=== PATIENT | female | born 1990 | race Caucasian/White ===

== ENCOUNTER → 2017-11-23 11:28 | Outpatient (CLI) | payer OTHER, SELFPAY ==
[2017-12-01 08:11] LABS: Dilute Prothrombin Time (dPT) 43.7 sec (0.0-55.0); Dilute Russell Viper Venom 38.3 sec (0.0-47.0); PTT-LA 37.4 sec (0.0-51.9); Thrombin Time 21.1 sec (0.0-23.0); dPT Confirm Ratio 0.99 Ratio (0.00-1.40)
[2017-12-01 17:20] LABS: Anti-Cardiolipin Ab, IgG, Qn < 9 GPL U/mL (0-14); Anti-Cardiolipin Ab, IgM, Qn 13 MPL U/mL (0-12); Interpretation Comment: (.)
== END ==
PROVIDERS: Visit Provider Obstetrics & Gynecology
DX: Z82.3 Family history of stroke (principal)
CPT/HCPCS: 36415; 81291; 86147

== ENCOUNTER → 2018-12-21 13:52 | Outpatient (CLI) | payer BC, SELFPAY ==
[2018-12-21 18:15] LABS: Chlamydia Trachomatis by PCR Negative (Negative); Neisserai gonorrhoeae by PCR Negative (Negative); Probe Check PASS; Sample Adequacy Control PASS; Specimen Processing Control PASS
[2018-12-24 08:22] LABS: HPV Reflexed? NOT INDICATED
== END ==
PROVIDERS: Visit Provider Obstetrics & Gynecology
DX: Z12.4 Encounter for screening for malignant neoplasm of cervix (principal); Z11.3 Encounter for screening for infections with a predominantly sexual mode of transmission
CPT/HCPCS: 87491; 87591; 88175; G0145

== ENCOUNTER → 2019-01-14 14:48 | Outpatient (CLI) | payer BC, SELFPAY ==
[2019-01-14 15:43] LABS: Color, Urine Yellow (Yellow); Glucose, Dipstick Normal (Normal); Ketone-Dipstick Negative (Negative); Leukocyte Esterase-Dipstick 25 /ul (Negative); Nitrite-Dipstick Negative (Negative); Occult Blood-Urine 10 /ul (Negative); Protein-Dipstick Negative (Negative); Specific Gravity, Urine 1.015 (1.002-1.030); Urine Bilirubin Dipstick Negative (Negative); Urine Clarity Cloudy (Clear); Urine Urobilinogen Normal (Normal)
[2019-01-14 16:10] LABS: Absolute Lymphocyte Count 1.34 X10^3/ul (0.83-4.51); Absolute Neutrophil Count 6.5 X10^3/uL (2.0-7.7); Basophil# 0.02 X10^3/uL; Basophil% 0.2 % (0-1); Eosinophil# 0.07 X10^3/uL; Eosinophils% 0.8 % (0-5); Hematocrit 38.4 % (37-47); Hemoglobin 12.8 g/dl (12.0-15.0); Lymphocyte # 1.34 X10^3/ul (4.0); Lymphocyte % 15.7 % (19-41); Mean Corp Hgb Conc 33.3 g/gl (32-36); Mean Corpuscular Volume 89.9 fL (81-99); Mean Platelet Vol. 10.5 fl (6.2-12.0); Monocyte# 0.59 X10^3/uL; Monocyte% 6.9 % (0-10); Neutrophil # 6.48 X10^3/uL (2.7-7.7); Neutrophil % 76.2 % (47-70); POSITIVE COUNT NO; POSITIVE DIFFERENTIAL NO; POSITIVE MORPHOLOGY NO; Platelet Count 285 K/mm3 (150-450); RBC Distribution Width CV 12.6 % (11.6-14.6); RBC Distribution Width SD 40.9 fl (35.1-43.9); Red Blood Count 4.27 M/mm3 (4.2-5.4); White Blood Count 8.5 K/mm3 (4.4-11.0)
[2019-01-14 16:51] LABS: Thyroid Stim Hormone (TSH) 1.04 uIU/mL (0.358-3.74)
[2019-01-14 17:32] LABS: HIV - WCH Non-Reactive (Nonreactive); Rubella IgG 26.9 IU/mL
[2019-01-17 11:08] LABS: HEPATITIS B SURFACE AG Negative (Negative); Hep C Antibodies <0.1 s/co ratio (0.0-0.9)
[2019-01-21 01:29] LABS: Prenatal RPR NONREACTIVE (NONREACTIVE)
== END ==
PROVIDERS: Visit Provider Obstetrics & Gynecology
DX: Z34.81 Encounter for supervision of other normal pregnancy, first trimester (principal)
CPT/HCPCS: 36415; 81002; 84443; 85025; 86703; 86762; 86803; 87340

== ENCOUNTER → 2019-05-25 11:52 | Outpatient (CLI) | payer BC, SELFPAY ==
[2017-10-11 04:05] VITALS: BMI 30.9
[2019-05-25 12:23] LABS: Hematocrit 34.3 % (37-47); Hemoglobin 11.4 g/dL (12.0-15.0); Mean Corp Hgb Conc 33.2 g/dL (32-36); Mean Corpuscular Hgb 30.5 pg (27.0-32.0); Mean Corpuscular Volume 91.7 fL (81-99); Mean Platelet Vol. 10.6 fl (6.2-12.0); Platelet Count 195 K/mm3 (150-450); RBC Distribution Width CV 13.5 % (11.6-14.6); RBC Distribution Width SD 45.7 fl (35.1-43.9); Red Blood Count 3.74 M/mm3 (4.2-5.4); White Blood Count 10.4 K/mm3 (4.4-11.0)
[2019-05-25 12:25] LABS: Glucose Challenge Gest 1H 50g 125 mg/dL (70-140)
== END ==
PROVIDERS: Visit Provider Obstetrics & Gynecology
DX: Z34.83 Encounter for supervision of other normal pregnancy, third trimester (principal)
CPT/HCPCS: 82950; 85027

== ENCOUNTER → 2019-07-19 14:06 | Outpatient (CLI) | payer BC, SELFPAY ==
[2017-10-11 04:05] VITALS: BMI 30.9
== END ==
PROVIDERS: Visit Provider Obstetrics & Gynecology
DX: Z36.85 Encounter for antenatal screening for Streptococcus B (principal)
CPT/HCPCS: 87077; 87081; 87186

== ENCOUNTER → 2019-08-09 11:50 | Outpatient (CLI) | payer BC, SELFPAY ==
[2019-08-09 11:55] LABS: ROM Internal Control Test YES-OK TO RESULT pt. (Internal QC)
[2019-08-09 11:56] LABS: Record Kit Lot#, ROM+ J8255
[2019-08-09 12:13] LABS: ROM Patient Test POSITIVE (Negative)
== END ==
PROVIDERS: Visit Provider Obstetrics & Gynecology
DX: Z34.83 Encounter for supervision of other normal pregnancy, third trimester (principal)
CPT/HCPCS: 84112

== ENCOUNTER 2019-08-09 13:50 | Inpatient (IN) | payer BC, SELFPAY ==
[2017-10-11 04:05] VITALS: BMI 30.9
--- NOTE | 2019-08-09 14:19 | PCM.HPOB.BLA ---
History and Physical Date of Admission: 08/09/19 OB HISTORY AND PHYSICAL EXAMINATION History of this : 29 yo female Ab0 with EDC 08/11/2019 by Ultrasound, presents to Labor and Delivery with positive ROM test in office today. BONILLA 13.8 cm and all other testing for ROM was negative. 38 5/7 wk EGA. . care remarkable for 1.) +GBS 2.) MSAFP and CF testing declined 3.) Cannot swallow pills 4.) Daughter had a possible stroke after , some motor delays, possible speech delays 5.) Epidural planned 6.) planned 7.) Lives about an hour from [place], 8.) Complex Regional Pain Syndrome -- reflex sympathetic dystrophy Pertinent Past Medical History: None. Allergies: No Known Drug Allergies Medications: During - Carafate 100 mg/mL oral suspension; Prilosec OTC 20 mg tablet,delayed release; 28 mg iron-800 mcg tablet; Zovirax 5 % topical ointment; Nexium 20 mg capsule,delayed release Review of Systems: Non-contributory 08/09/2019 Page Number 1 PHYSICAL EXAMINATION General Appearance: 29 yo female in no acute distress Vital Signs: AF, VSS Heart: RRR without rubs or gallops Lungs: CTA x 2 Breasts: deferred Abdomen: gravid Pelvis: Cervix: Presentation: cephalic Station: Fetus: Size: Sono today: Amniotic fluid: Normal and 13.8 cm EFW 44.9 pct EFW 7lb 12oz lbs Movement: present Heart: 130-140s with accels. UCs q 4 mins (minimal time on monitor) Impression /Plan: Intrauterine 39 5/7 wk Positive ROM. negative pool, neg nitz, and neg fern. BONILLA on sono 13.8 cm. Prior delivery with prolonged ROM. Infection and then vacuum delivery. Nervous re delivery. Recommended pitocin induction after admission.
[2019-08-09 14:21] VITALS: BMI 30.9
[2019-08-09] MEDS: Lactated Ringers 1,000 ML 50 ML IV (15:00)
[2019-08-09 15:29] LABS: Absolute Lymphocyte Count 1.49 X10^3/uL (0.83-4.51); Absolute Neutrophil Count 9.3 X10^3/uL (2.0-7.7); Basophil# 0.02 X10^3/uL; Basophil% 0.2 % (0-1); Eosinophil# 0.02 X10^3/uL; Eosinophils% 0.2 % (0-5); Hematocrit 34.1 % (37-47); Hemoglobin 11.3 g/dL (12.0-15.0); Lymphocyte # 1.49 X10^3/ul (4.0); Lymphocyte % 12.8 % (19-41); Mean Corp Hgb Conc 33.1 g/dL (32-36); Mean Corpuscular Volume 87.7 fL (81-99); Mean Platelet Vol. 11.8 fl (6.2-12.0); Monocyte# 0.67 X10^3/uL; Monocyte% 5.8 % (0-10); NRBC Flagged by Analyzer 0 % (0-5); Neutrophil # 9.32 X10^3/uL (2.7-7.7); Neutrophil % 80.1 % (47-70); Platelet Count 184 K/mm3 (150-450); RBC Distribution Width CV 13.1 % (11.6-14.6); RBC Distribution Width SD 41.2 fl (35.1-43.9); Red Blood Count 3.89 M/mm3 (4.2-5.4); White Blood Count 11.6 K/mm3 (4.4-11.0)
[2019-08-09] MEDS: Oxytocin 30 units/NS 500 ml 30 UNITS/500 ML IV.SOLN IV (17:10)
[2019-08-09] MEDS: Lactated Ringers 500 ML 999 ML IV ×2 (17:18→19:50)
[2019-08-09] MEDS: fentaNYL-bupivacaine (epidural) 100 ML BAG EPIDURAL ×2 (18:20→23:00)
--- NOTE | 2019-08-09 19:53 | PN.OBGYN_ITS ---
Subjective: MD PATIENT CNM ASSISTING Comfortable with epidural Objective: AVSS FHTs: 135 baseline, moderate variability, with accels, no decels UCs:Q 4-5, tracing inconsistent Cervix:2/50/-3 Pitocin:4 mu - Physical Exam General: Alert, Oriented x3, No apparent distress HEENT: PERRLA, EOMI Oral: Moist Mucosa Neck: Supple Neurological: Cranial nerves II-XII grossly intact Psych/Mental Status: Normal Affect, Appropriate, Alert and oriented to time, place, person, mood and affect Weight: 175 lb Body Mass Index (BMI) 30.9 Intake and Output for Last 24 Hours 08/07/19 08/08/19 08/09/19 23:59 23:59 23:59 Intake Total 756.07 / 756.07 Balance 756.07 / 756.07 Laboratory Tests Past 24 Hrs 08/09/19 08/09/19 15:00 15:00 WBC 11.6 H RBC 3.89 L Hgb 11.3 L Hct 34.1 L MCV 87.7 MCH 29.0 MCHC 33.1 RDW Std Deviation 41.2 RDW Coeff of Jamir 13.1 Plt Count 184 MPV 11.8 Immature Gran % (Auto) 0.900 Neut % (Auto) 80.1 H Lymph % (Auto) 12.8 L Pierce % (Auto) 5.8 Eos % (Auto) 0.2 Baso % (Auto) 0.2 Absolute Neuts (auto) 9.3 H Absolute Lymphs (auto) 1.49 Nucleated RBC % 0 Blood Type O POSITIVE Antibody Screen NEGATIVE Medical Necessity - Tobacco Use Smoking Status: Never smoker Assessment/Plan All Active Problems 40 weeks gestation of (Acute) Vacuum extractor delivery, delivered (Acute) Assessment: 29 yo female Ab0 with EDC 08/11/2019 by Ultrasound,with po sitive ROM test in office today. . 38 5/7 wk EGA. Complex Regional Pain Syndrome -- reflex sympathetic dystrophy GBS positive Inconsistent UC pattern d/t difficulty tracing with pt position changes Plan: IUPC placed Continue POC as directed by Dr. Pozo
[2019-08-09] MEDS: Ondansetron 4 MG/2 ML Vial IV (20:14)
[2019-08-09] MEDS: Mag Hydrox/Al Hydrox/Simeth 30 ML UDC PO (20:39)
[2019-08-09] MEDS: Lactated Ringers 1,000 ML 200 ML IV (23:23)
[2019-08-09] MEDS: Oxytocin 30 units/NS 500 ml 30 UNITS/500 ML IV.SOLN 334 UNITS IV (23:58)
--- NOTE | 2019-08-10 00:03 | PCM.OPRPT ---
Vaginal Delivery Maternal Presentation: Medically Indicated Induction 39 5/7 wk EGA presents with +ROM Amniotic Membrane Rupture Type: Spontaneous at home Rupture of Membrane time: uncertain Amniotic Fluid Description: Clear Final FABIOLA: 08/11/19 Final FABIOLA Source: US <20 weeks Gestational age: 39 Weeks and 6 Days Date of Procedure: 08/09/19 Pre-Operative Diagnosis: 38 5/7 wk EGA SROM Post-Operative Diagnosis: Same Surgery/ Procedure Performed: Spontaneous Vaginal Delivery Type of Anesthesia: Epidural Description of Procedure: of a sadler viable male over intact perineum. Head delivered MARIANNA. Loose body cord / shoulder cord times one reduced with delivery of shoulders. Shoulders delivered easily. OP and nares bulb suctioned and to maternal abdomen with spont vigorous cry. Routine cord blood for typing collected PP exam; 1st deg vaginal laceration reapproximated well and hemostatic, No repair required Placenta delivered by spont expulsion, expression 3V cord, normal appearing and intact with trailing membranes. EBL 200 cc Pt and infant tolerated delivery well To recovery, stable condition. Raytec and needle counts correct times two. Presentation: Vertex, MARIANNA Placental Delivery Description: Spontaneous, Expressed Placenta Disposition: [facility] Cord Vessel Description: 3 Vessels Nuchal Cord Compression: Without compression Cord Entanglement: - - cord around shoulders, body times one Drain: Grigsby to straight drain Estimated Blood Loss: 200 Infant A gender: Male (1 minute): 8 (5 minute): 9 Episiotomy Description: None Laceration: Vaginal Extension/lac - hemostatic and no repair required., 1st degree Medications given after delivery: IV Pitocin Complications: None
--- NOTE | 2019-08-10 00:09 | DCINST_ITS ---
Discharge Diet: No Restrictions Discharge Activity: May Shower, May Take a Tub Bath Return to work on:: 09/26/19 May resume sexual activity in: 4-6 weeks Additional Activity Instructions:: Nothing in the vagina for 4-6 weeks. You may return to work/school in 6 weeks. Additional Instructions: If you experience any of the following, contact your healthcare provider. * Bleeding that soaks a pad every hour for 2 hours * Fever 100.4 or higher * Unrelieved abdominal pain * Problems urinating (including inability to urinate or burning while urinating). * Visual changes * Severe headache * Flu-like symptoms * Pain or redness in one of both of your breasts * Pain, warmth, tenderness or swelling in your legs, especially the calf area * Frequent nausea and vomiting * Symptoms of depression or anxiety If you experience any of the following, call 911 or go to the nearest Emergency Room. * Chest pain * Problems breathing * Seizure activity * Partial or complete paralysis of a body part, slurred speech, weakness or drooping of the face, or a sudden inability to walk or hold your balance Allergies/Adverse Reactions: Allergies No Known Allergies Allergy (Verified 08/09/19 15:38) Medications to take at Discharge Esomeprazole Mag Trihydrate [Nexium] 20 mg PO DAILY PRN 10/10/17 Vits [Prenatabs FA] 1 tablet PO DAILY 10/10/17 Docusate Sodium [Colace] 100 mg PO BID PRN PRN #60 cap 10/11/17 Ibuprofen 800 mg PO TID PRN #30 tab 10/11/17 Please Follow Up With: Kimi Pozo MD - [phone] When: Call to make an appointment with your doctor in 6 weeks. Primary Care Physician: Care Physician,No Primary [Primary Care Provider] - Test Results: Test results from this visit will be discussed in further detail at your follow- up appointment, if applicable. Proposed Discharge Date: 08/12/19
[2019-08-10] MEDS: Ibuprofen 600 MG Tablet PO ×4 (02:37→23:55)
[2019-08-10] MEDS: 0.9% Saline Lock 10 ML Syringe IV (02:38)
[2019-08-10 04:15] VITALS: BP 103/57; PULSE 78; RESP 16; TEMP 36.4
[2019-08-10] MEDS: Acetaminophen 500 MG Tablet 1000 MG PO ×2 (07:02→17:34)
--- NOTE | 2019-08-10 07:22 | PN.OBGYN_ITS ---
Subjective: PPD#1 Induction after + ROM 39 5/7 wk Doing well. Some pain at back. Waiting to void, and not able yet after Grigsby removed at 2 am. Objective: Sitting up in bed. S/L in L wrist - Physical Exam General: Alert, Oriented x3, Cooperative, No apparent distress HEENT: Atraumatic, EOMI Neck: Supple Abdomen: Soft - Fundus firm NT inferior to umbilicus Neurological: Cranial nerves II-XII grossly intact Psych/Mental Status: Normal Affect Vital Signs Temp Pulse Resp BP 97.5 F L 78 16 103/57 L 08/10/19 04:15 08/10/19 04:15 08/10/19 04:15 08/10/19 04:15 Weight: 79.379 kg Body Mass Index (BMI) 30.9 Intake and Output for Last 24 Hours 08/08/19 08/09/19 08/10/19 23:59 23:59 23:59 Intake Total 2310.73 / 2310.73 500.00 / 500.00 Output Total 1300 / 1300 Balance 2310.73 / 2310.73 -800.00 / -800.00 Laboratory Tests Past 24 Hrs 08/09/19 08/09/19 15:00 15:00 WBC 11.6 H RBC 3.89 L Hgb 11.3 L Hct 34.1 L MCV 87.7 MCH 29.0 MCHC 33.1 RDW Std Deviation 41.2 RDW Coeff of Jamir 13.1 Plt Count 184 MPV 11.8 Immature Gran % (Auto) 0.900 Neut % (Auto) 80.1 H Lymph % (Auto) 12.8 L [place] % (Auto) 5.8 Eos % (Auto) 0.2 Baso % (Auto) 0.2 Absolute Neuts (auto) 9.3 H Absolute Lymphs (auto) 1.49 Nucleated RBC % 0 Blood Type O POSITIVE Antibody Screen NEGATIVE Medical Necessity - Tobacco Use Smoking Status: Never smoker Assessment/Plan 39 5/7 wk positive ROM Induction Stable . Continue care.
[2019-08-10 08:24] VITALS: BP 107/59; PULSE 72; RESP 16; TEMP 36.5; O2SAT 98
[2019-08-10] MEDS: Senna/Docusate Sodium 1 Tablet PO (08:40)
[2019-08-10 12:54] VITALS: BP 108/73; PULSE 82; RESP 16; TEMP 36.6; O2SAT 96
[2019-08-10 15:51] VITALS: BP 117/69; PULSE 72; RESP 16; TEMP 36.5; O2SAT 96
[2019-08-10 19:53] VITALS: BP 115/70; PULSE 83; RESP 16; TEMP 36.8; O2SAT 95
[2019-08-10 23:45] VITALS: BP 105/62; PULSE 64; RESP 16; TEMP 36.5
[2019-08-11 03:42] VITALS: BP 106/59; PULSE 78; RESP 16; TEMP 36.4
[2019-08-11] MEDS: Acetaminophen 500 MG Tablet 1000 MG PO ×2 (05:22→15:27)
--- NOTE | 2019-08-11 06:48 | PCM.PN.OB ---
Subjective: PPD#2 induction ROM positive test Doing well. Baby just finished about 3 hr of nursing. She is hoping for some sleep soon. Pain control adequate circumcision planned prior to dischg. - Physical Exam General: Alert, Oriented x3, Cooperative, No apparent distress HEENT: Atraumatic, EOMI Neck: Supple Abdomen: Soft - Fundus firm NT at 2 cm inferior to umbilicus Psych/Mental Status: Normal Affect Vital Signs Temp Pulse Resp BP Pulse Ox 97.6 F L 78 16 106/59 L 95 08/11/19 03:42 08/11/19 03:42 08/11/19 03:42 08/11/19 03:42 08/10/19 19:53 Oxygen Delivery Method Room Air Weight: 79.379 kg Body Mass Index (BMI) 30.9 Intake and Output for Last 24 Hours 08/09/19 08/10/19 08/11/19 23:59 23:59 23:59 Intake Total 2310.73 / 2310.73 500.00 / 500.00 500 / 500 Output Total 2635 / 2635 Balance 2310.73 / 2310.73 -2135.00 / -2135.00 500 / 500 Medical Necessity - Tobacco Use Smoking Status: Never smoker Assessment/Plan PPD#2 39 5/7 wk positive ROM Induction Stable . Continue care. Dischg home today. circumcision planned prior to dischg.
[2019-08-11 09:36] VITALS: BP 115/66; PULSE 82; TEMP 36.3
[2019-08-11] MEDS: Senna/Docusate Sodium 1 Tablet PO (10:32)
[2019-08-11] MEDS: Ibuprofen 600 MG Tablet PO (10:32)
[2019-08-11 15:15] VITALS: BP 107/61; PULSE 85; RESP 18; TEMP 36.5
== END 2019-08-11 18:50 | disposition home or self-care (01) | DRG 806 ==
PROVIDERS: Admitting Provider Obstetrics & Gynecology; Visit Provider Obstetrics & Gynecology
DX: O75.9 Complication of labor and delivery, unspecified (principal); O99.354 Diseases of the nervous system complicating childbirth; Z37.0 Single live birth; G90.50 Complex regional pain syndrome I, unspecified; O69.1XX0 Labor and delivery complicated by cord around neck, with compression, not applicable or unspecified; O99.824 Streptococcus B carrier state complicating childbirth; O70.0 First degree perineal laceration during delivery; Z3A.39 39 weeks gestation of pregnancy
CPT/HCPCS: 59025; 59050; 85025; 86850; 86900; 86901; 99218; J7120; A4216; G0378; J2405

== ENCOUNTER → 2021-01-01 15:52 | Outpatient (CLI) | payer BC, SELFPAY ==
[2021-01-01 16:42] LABS: Absolute Lymphocyte Count 1.86 X10^3/uL (0.83-4.51); Absolute Neutrophil Count 5.8 X10^3/uL (2.0-7.7); Basophil# 0.03 X10^3/uL; Basophil% 0.4 % (0-1); Eosinophil# 0.05 X10^3/uL; Eosinophils% 0.6 % (0-5); Hematocrit 38.1 % (37-47); Hemoglobin 12.5 g/dL (12.0-15.0); Lymphocyte # 1.86 X10^3/ul (4.0); Lymphocyte % 22.7 % (19-41); Mean Corp Hgb Conc 32.8 g/dL (32-36); Mean Corpuscular Hgb 29.6 pg (27.0-32.0); Mean Corpuscular Volume 90.1 fL (81-99); Mean Platelet Vol. 9.9 fl (6.2-12.0); Monocyte% 6.1 % (0-10); NRBC Flagged by Analyzer 0 % (0-5); Neutrophil # 5.75 X10^3/uL (2.7-7.7); Platelet Count 294 K/mm3 (150-450); RBC Distribution Width CV 12.4 % (11.6-14.6); RBC Distribution Width SD 40.7 fl (35.1-43.9); Red Blood Count 4.23 M/mm3 (4.2-5.4); White Blood Count 8.2 K/mm3 (4.4-11.0)
[2021-01-02 09:17] LABS: HIV - WCH Non-Reactive (Nonreactive); Hepatitis B Surface Antigen Non-Reactive (Nonreactive); Hepatitis C Antibody Non-Reactive (Nonreactive); Rubella IgG Reactive (Nonreactive); Syphilis Antibodies Non-reactive
[2021-01-04 03:07] LABS: Chlamydia By Nucleic Acid AMP Negative (Negative)
[2021-01-04 08:39] LABS: Gonococcus By Nucleic Acid AMP Negative (Negative)
== END ==
PROVIDERS: Visit Provider Obstetrics & Gynecology
DX: Z34.81 Encounter for supervision of other normal pregnancy, first trimester (principal)
CPT/HCPCS: 36415; 85025; 86703; 86762; 86803; 87086; 87088; 87340; 87491; 87591

== ENCOUNTER → 2021-06-20 | Outpatient (CLI) | payer BC, SELFPAY ==
[2021-06-20 17:58] LABS: Absolute Lymphocyte Count 1.62 X10^3/uL (0.83-4.51); Absolute Neutrophil Count 6.8 X10^3/uL (2.0-7.7); Basophil# 0.04 X10^3/uL; Basophil% 0.4 % (0-1); Eosinophil# 0.06 X10^3/uL; Eosinophils% 0.7 % (0-5); Hematocrit 36.5 % (37-47); Hemoglobin 12.4 g/dL (12.0-15.0); Lymphocyte # 1.62 X10^3/ul (0.83-4.51); Lymphocyte % 17.7 % (19-41); Mean Corpuscular Hgb 30.1 pg (27.0-32.0); Mean Corpuscular Volume 88.6 fL (81-99); Mean Platelet Vol. 10.5 fl (6.2-12.0); Monocyte# 0.55 X10^3/uL; NRBC Flagged by Analyzer 0 % (0-5); Neutrophil # 6.83 X10^3/uL (2.7-7.7); Neutrophil % 74.9 % (47-70); Platelet Count 277 K/mm3 (150-450); RBC Distribution Width CV 12.9 % (11.6-14.6); RBC Distribution Width SD 41.7 fl (35.1-43.9); Red Blood Count 4.12 M/mm3 (4.2-5.4); White Blood Count 9.1 K/mm3 (4.4-11.0)
[2021-06-20 18:17] LABS: Thyroid Stim Hormone (TSH) 0.64 uIU/mL (0.358-3.74)
[2021-06-21 11:01] LABS: HIV - WCH Non-Reactive (Nonreactive); Hepatitis B Surface Antigen Non-Reactive (Nonreactive); Hepatitis C Antibody Non-Reactive (Nonreactive); Rubella IgG Reactive (Nonreactive); Syphilis Antibodies Non-reactive
[2021-06-24 03:07] LABS: Chlamydia By Nucleic Acid AMP Negative (Negative)
[2021-06-24 13:05] LABS: Gonococcus By Nucleic Acid AMP Negative (Negative)
== END | disposition home or self-care (01) ==
PROVIDERS: Visit Provider Obstetrics & Gynecology
DX: Z32.01 Encounter for pregnancy test, result positive (principal)
CPT/HCPCS: 84443; 85025; 86703; 86762; 86780; 86803; 87086; 87088; 87340; 87491; 87591

== ENCOUNTER → 2021-10-16 11:55 | Outpatient (CLI) | payer BC, SELFPAY ==
[2021-10-16 12:24] LABS: Absolute Lymphocyte Count 1.36 X10^3/uL (0.83-4.51); Absolute Neutrophil Count 8.9 X10^3/uL (2.0-7.7); Basophil# 0.02 X10^3/uL; Basophil% 0.2 % (0-1); Eosinophil# 0.05 X10^3/uL; Eosinophils% 0.4 % (0-5); Hematocrit 35.1 % (37-47); Hemoglobin 11.9 g/dL (12.0-15.0); Lymphocyte # 1.36 X10^3/ul (0.83-4.51); Lymphocyte % 12.2 % (19-41); Mean Corp Hgb Conc 33.9 g/dL (32-36); Mean Corpuscular Hgb 30.7 pg (27.0-32.0); Mean Corpuscular Volume 90.5 fL (81-99); Mean Platelet Vol. 10.2 fl (6.2-12.0); Monocyte# 0.68 X10^3/uL; Monocyte% 6.1 % (0-10); NRBC Flagged by Analyzer 0 % (0-5); Neutrophil # 8.88 X10^3/uL (2.7-7.7); Neutrophil % 79.5 % (47-70); Platelet Count 190 K/mm3 (150-450); RBC Distribution Width CV 13.6 % (11.6-14.6); RBC Distribution Width SD 44.9 fl (35.1-43.9); Red Blood Count 3.88 M/mm3 (4.2-5.4); White Blood Count 11.2 K/mm3 (4.4-11.0)
[2021-10-16 13:21] LABS: Thyroid Stim Hormone (TSH) 1.42 uIU/mL (0.358-3.74)
== END ==
PROVIDERS: Referring Provider Internal Medicine Cardiovascular Disease; Visit Provider Internal Medicine Cardiovascular Disease
DX: R00.2 Palpitations (principal)
CPT/HCPCS: 36415; 84443; 85025

== ENCOUNTER 2021-11-11 13:02 | Outpatient (CLI) | payer BC, SELFPAY ==
[2021-11-11 13:54] LABS: Hematocrit 33.7 % (37-47); Hemoglobin 11.1 g/dL (12.0-15.0); Mean Corp Hgb Conc 32.9 g/dL (32-36); Mean Corpuscular Hgb 30.1 pg (27.0-32.0); Mean Corpuscular Volume 91.3 fL (81-99); Mean Platelet Vol. 10.4 fl (6.2-12.0); Platelet Count 207 K/mm3 (150-450); RBC Distribution Width CV 13.2 % (11.6-14.6); RBC Distribution Width SD 43.4 fl (35.1-43.9); Red Blood Count 3.69 M/mm3 (4.2-5.4); White Blood Count 11.2 K/mm3 (4.4-11.0)
[2021-11-11 14:09] LABS: Glucose Challenge Gest 1H 50g 108 mg/dL (70-140)
== END 2021-11-11 23:59 | disposition short-term general hospital (02) ==
LOC: WOBLAB 13:03
PROVIDERS: Visit Provider Obstetrics & Gynecology
DX: Z34.83 Encounter for supervision of other normal pregnancy, third trimester (principal)
CPT/HCPCS: 36415; 82950; 85027

== ENCOUNTER 2021-12-31 15:22 | Outpatient (CLI) | payer BC, SELFPAY | END 2021-12-31 23:59 | disposition home or self-care (01) | LOC: LABSPEC 15:23 | PROVIDERS: Visit Provider Obstetrics & Gynecology | DX: Z36.85 Encounter for antenatal screening for Streptococcus B (principal) | CPT/HCPCS: 87081 ==

== ENCOUNTER 2022-01-25 07:10 | Inpatient (IN) | payer BC, SELFPAY ==
[2022-01-25] VITALS (98 sets, daily range): BP systolic 98–131; BP diastolic 58–84; PULSE 65–121; RESP 16; TEMP 36.1–36.7; O2SAT 81–100; BMI 32.1
[2022-01-25] MEDS: Lactated Ringers 1,000 ML 50 ML IV (07:40)
[2022-01-25 08:05] LABS: Absolute Lymphocyte Count 1.74 X10^3/uL (0.83-4.51); Absolute Neutrophil Count 9.2 X10^3/uL (2.0-7.7); Basophil# 0.03 X10^3/uL; Basophil% 0.3 % (0-1); Eosinophil# 0.07 X10^3/uL; Eosinophils% 0.6 % (0-5); Hemoglobin 11.3 g/dL (12.0-15.0); Lymphocyte # 1.74 X10^3/ul (0.83-4.51); Lymphocyte % 14.8 % (19-41); Mean Corp Hgb Conc 34.2 g/dL (32-36); Mean Corpuscular Hgb 29.5 pg (27.0-32.0); Mean Corpuscular Volume 86.2 fL (81-99); Mean Platelet Vol. 11.7 fl (6.2-12.0); Monocyte# 0.61 X10^3/uL; Monocyte% 5.2 % (0-10); NRBC Flagged by Analyzer 0 % (0-5); Neutrophil # 9.17 X10^3/uL (2.7-7.7); Neutrophil % 78.1 % (47-70); Platelet Count 186 K/mm3 (150-450); RBC Distribution Width CV 13.7 % (11.6-14.6); RBC Distribution Width SD 42.5 fl (35.1-43.9); Red Blood Count 3.83 M/mm3 (4.2-5.4); White Blood Count 11.7 K/mm3 (4.4-11.0)
[2022-01-25] MEDS: Oxytocin 30 units/NS 500 ml 30 UNITS/500 ML IV.SOLN IV (08:20)
[2022-01-25 08:31] LABS: ROM Internal Control Test YES-OK TO RESULT pt. (Internal QC); ROM Patient Test Negative (Negative)
[2022-01-25] MEDS: Lactated Ringers 500 ML 999 ML IV (11:15)
[2022-01-25] MEDS: fentaNYL-bupivacaine (epidural) 100 ML BAG EPIDURAL (12:15)
--- NOTE | 2022-01-25 12:42 | PCM.HP.BLA ---
History and Physical Date of Admission: 01/25/22 Chief complaint: Induction of labor at term History of present illness: 31-year-old at 40 weeks and 3 days with FABIOLA 01/22/2022 by LMP arrives for induction of labor at term. Denies headache, visual changes, chest pain, shortness of breath, nausea vomiting, right upper quadrant pain. Patient states good movement. Obstetric history: G1: 40-week vacuum-assisted vaginal delivery female 10/11/2017 G2: 39-week male 08/09/2019 G3: SAB 12/2020 G4: Current Past medical history: Regional pain syndrome Medications: vitamin Past surgical history: Leg fasciotomy bilaterally Allergies: No known drug allergies Social history: Denies smoking, alcohol use, drug use Family history: Denies history DVT or PE Review of systems: Besides the above pertinent positives a full review of systems was performed and found to be negative Physical exam: Vitals: Pulse 91 SpO2 100% on room air General: Normal-appearing no acute distress HEENT: Normocephalic atraumatic no cervical of adenopathy Cardiac/respiratory: No use of accessory muscles, nonlabored breathing Abdomen: Soft, nontender, gravid Pelvic exam: Cervix 2/70/-3. AROM clear fluid Extremities: No peripheral edema normal peripheral pulses Psych: Normal affect normal demeanor nonpressured speech Labs: White blood cell count 11.7 hemoglobin 11.3 hematocrit 33.0% platelets 186. Blood type O+ antibody negative Assessment plan: 31-year-old G4, P2 at 40 weeks and 3 days for induction of labor at term Admit labor and delivery CEFM GBS negative Pitocin induction Comfortable with epidural: AROM clear fluid Routine orders
[2022-01-25] MEDS: Oxytocin 30 units/NS 500 ml 30 UNITS/500 ML IV.SOLN 334 UNITS IV (15:24)
--- NOTE | 2022-01-25 15:32 | EX.PCM.OBRPT ---
Vaginal Delivery Findings Description of Procedure: Spontaneous vaginal delivery of a viable male , vertex. Head and shoulders delivered with ease. Cord cut and clamped. Baby handed off to patient and nursing. Placenta delivered via cord traction and fundal massage. Midline perineal laceration noted and repaired in typical fashion. EBL 300 cc Apgars 8/9
[2022-01-25] MEDS: 0.9% Saline Lock 10 ML Syringe IV (18:05)
[2022-01-25] MEDS: Ibuprofen 600 MG Tablet PO (19:47)
[2022-01-25] MEDS: Acetaminophen 500 MG Tablet 1000 MG PO (21:22)
[2022-01-25] MEDS: Senna/Docusate Sodium 1 Tablet PO (21:23)
[2022-01-26] VITALS (9 sets, daily range): BP systolic 103–123; BP diastolic 66–74; PULSE 77–98; RESP 16–17; TEMP 36.1–36.7; O2SAT 97
[2022-01-26] MEDS: Ibuprofen 600 MG Tablet PO ×3 (01:49→15:29)
[2022-01-26] MEDS: Acetaminophen 500 MG Tablet 1000 MG PO ×3 (03:28→16:31)
--- NOTE | 2022-01-26 09:28 | PCM.DC ---
Discharge Instructions Diet Discharge Diet: No restrictions Activity Discharge Activity: Return to Normal Activity, May Drive and May Shower May resume sexual activity in: 4-6 weeks Weight Bearing Status: Weight bearing as tolerated Dressing / Incision Call your doctor if your incision/area has: Continuous Slow Oozing and Foul Smelling Discharge Call your doctor if you observe: Fever of 101 or Higher, Shortness of breath and Chest pain Follow Up Care Please Follow Up With: Chavez Milian MD When: 2-week telehealth visit, 4 to 6 weeks visit Test Results: Test results from this visit will be discussed in further detail at your follow-up appointment, if applicable. Discharge Plan Admission Admit Date/Time: 01/25/22 07:10 Attending Provider: Chavez Milian Primary Care Provider: Care PhysicianPrachi Primary Discharge Orders/Prescriptions Prescriptions: No Action famotidine [Pepcid] 20 mg tablet 20 mg PO DAILY RF: 0 Prenatabs FA 1 TABLET tablet 1 tab PO DAILY RF: 0 docusate sodium 100 MG capsule 100 mg PO BID PRN PRN (Reason: Constipation) Qty: 60 RF: 0 Disposition Discharge Orders: Discharge Patient (Routine); Ordered 01/26/22 Ordered By: Dr. Chavez Milian
--- NOTE | 2022-01-26 09:29 | PCM.PN.OB ---
Subjective Subjective No overnight complaints Objective Data Objective Data Vital Signs: Vital Signs Temp Pulse Resp BP Pulse Ox 97.2 F L 80 17 116/73 97 01/26/22 07:53 01/26/22 07:53 01/26/22 07:53 01/26/22 07:53 01/26/22 00:58 Oxygen Delivery Method Room Air Weight: 181 lb Body Mass Index (BMI) 32.1 Intake & Output: Intake and Output for Last 24 Hours 01/24/22 01/25/22 01/26/22 23:59 23:59 23:59 Intake Total 1841.10 / 1841.10 Output Total 1300 / 1300 Balance 541.10 / 541.10 Lab / Micro Data Result Diagrams: 01/25/22 07:40 Labs: Laboratory Results - last 24 hr 01/25/22 07:40: Blood Type O POSITIVE, Antibody Screen NEGATIVE Micro: Microbiology 01/25/22 08:10 Nasal Secretion SARS-CoV-2 Antigen (Rapid) - Final Physical Exam Const alert, oriented x3, no apparent distress, average body habitus, healthy appearing and well nourished HEENT normocephalic and moist oral mucous membranes Head and Scalp: atraumatic Face and Sinus: normal facial exam Neck full ROM Resp normal respiratory effort, no retractions and no use of accessory muscles GI GI Narrative: Soft, nontender, uterus firm Extremity normal to inspection, full ROM and no clubbing, cyanosis or edema Psych mental status grossly normal, affect normal, speech normal and activity/motor behavior normal Assessment & Plan (1) Vaginal delivery: PLAN: day 1. Breast-feeding. Pain well controlled. 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
== END 2022-01-26 17:40 | disposition home or self-care (01) | DRG 807 ==
PROVIDERS: Student in an Organized Health Care Education/Training Program; Admitting Provider Obstetrics & Gynecology; Visit Provider Obstetrics & Gynecology
DX: O48.0 Post-term pregnancy (principal); Z37.0 Single live birth; O70.0 First degree perineal laceration during delivery; Z3A.40 40 weeks gestation of pregnancy
CPT/HCPCS: 59025; 59050; 84112; 85025; 86850; 86900; 86901; 87426; 99218; J7120; A4216; G0378

== ENCOUNTER → 2022-08-25 | Outpatient (CLI) | payer BC, SELFPAY | END | disposition home or self-care (01) | LOC: LABSPEC 15:08 | PROVIDERS: Visit Provider Student in an Organized Health Care Education/Training Program | DX: R30.0 Dysuria (principal) | CPT/HCPCS: 87077; 87086; 87088 ==

== ENCOUNTER → 2023-04-29 | Outpatient (CLI) | payer OTHER, SELFPAY ==
[2023-04-29 16:52] LABS: EXAGEN MAILED SPECIMEN
[2023-04-29 17:41] LABS: Color, Urine Yellow (Yellow); Glucose, Dipstick Normal (Normal); Ketone-Dipstick 5 mg/dl (Negative); Leukocyte Esterase-Dipstick 25 /ul (Negative); Nitrite-Dipstick Negative (Negative); Occult Blood-Urine 25 /ul (Negative); Protein-Dipstick 30 mg/dl (Negative); Specific Gravity, Urine 1.015 (1.002-1.030); Urine Bilirubin Dipstick Negative (Negative); Urine Clarity Sl. Cloudy (Clear); Urine Urobilinogen 1 mg/dl (Normal); Urine pH 6.5 (5.0 - 8.0)
[2023-04-29 17:48] LABS: Absolute Lymphocyte Count 1.91 X10^3/uL (0.83-4.51); Basophil# 0.05 X10^3/uL; Basophil% 0.7 % (0-1); Eosinophil# 0.06 X10^3/uL; Eosinophils% 0.8 % (0-5); Hematocrit 39.6 % (37-47); Hemoglobin 13.2 g/dL (12.0-15.0); Lymphocyte # 1.91 X10^3/ul (0.83-4.51); Lymphocyte % 25.4 % (19-41); Mean Corp Hgb Conc 33.3 g/dL (32-36); Mean Corpuscular Hgb 29.5 pg (27.0-32.0); Mean Corpuscular Volume 88.6 fL (81-99); Mean Platelet Vol. 10.4 fl (6.2-12.0); Monocyte# 0.43 X10^3/uL; Monocyte% 5.7 % (0-10); NRBC Flagged by Analyzer 0 % (0-5); Neutrophil # 5.04 X10^3/uL (2.7-7.7); Neutrophil % 67.1 % (47-70); Platelet Count 301 K/mm3 (150-450); RBC Distribution Width CV 12.8 % (11.6-14.6); RBC Distribution Width SD 41.9 fl (35.1-43.9); Red Blood Count 4.47 M/mm3 (4.2-5.4); White Blood Count 7.5 K/mm3 (4.4-11.0)
[2023-04-29 18:01] LABS: Prothrombin Time (Protime)PT. 13.1 SECONDS (11.7-14.9)
[2023-04-29 18:02] LABS: Partial Thromboplast Time 30.7 Seconds (24.1-36.2)
[2023-04-29 18:36] LABS: ALB/GLOB Ratio 1.1 RATIO (0.9-2.4); AST(SGOT) 16 U/L (15-37); Alanine Aminotransfer ALT/SGPT 23 U/L (13-56); Albumin, Serum 4.1 g/dL (3.2-5.0); Alkaline Phosphatase 85 U/L (45-117); Anion Gap 6 (5-15); BUN 12 mg/dL (7-18); BUN/Creat Ratio 16.1 RATIO (10-20); Calcium,Total 9.1 mg/dL (8.5-10.1); Chloride 106 mmol/L (98-107); Creatinine, Serum 0.74 mg/dL (0.55-1.02); EST Glomerular Filtration Rate 95 mL/min (>60); Est Glom Filt Rate - Afr Amer 115 mL/min (>60); Globulin 3.8 g/dL (2.2-4.2); Glucose 93 mg/dL (74-106); Potassium 3.7 mmol/L (3.5-5.1); Protein, Total 7.9 g/dL (6.4-8.2); Sodium Level 138 mmol/L (136-145)
[2023-04-29 18:59] LABS: Hepatitis B Surface Antibody Non-Reactive; Hepatitis B Surface Antigen Non-Reactive (Nonreactive); Hepatitis C Antibody Non-Reactive (Nonreactive)
[2023-04-29 19:31] LABS: Protein, Urine (Random) 18.9 mg/dL (<11.9); Protein:Creat Ratio 94 mg/g CRE (0-200)
[2023-05-02 13:07] LABS: Dilute Prothrombin Time (dPT) 37.7 sec (0.0-47.6); Hexagonal Phase Phospholipid 7 sec (0-11); Hexagonal Phase Phospholipid 2 7 sec (0-11); Interpretation Comment: (.); PTT-LA 44.7 sec (0.0-43.5)
== END | disposition home or self-care (01) ==
PROVIDERS: PCP Internal Medicine; Referring Provider Internal Medicine Rheumatology; Visit Provider Internal Medicine Rheumatology
DX: M06.4 Inflammatory polyarthropathy (principal); R76.8 Other specified abnormal immunological findings in serum; M21.41 Flat foot [pes planus] (acquired), right foot; G90.523 Complex regional pain syndrome I of lower limb, bilateral
CPT/HCPCS: 36415; 80053; 81002; 82570; 84156; 85025; 85598; 85610; 85730; 86706; 86803; 87340

== ENCOUNTER 2025-03-10 15:00 | Outpatient (RCR) | payer OTHER, SELFPAY ==
--- NOTE | 2024-11-02 15:35 | HP.PTEVAL_ITS ---
Patient's Visit Information Visit Information Visit Information: MADALYN KAUFFMAN is a 34 year old F referred to Physical Therapy by HOLGER Wagner with a diagnosis of URINARY INCONTINENCE, PELVIC FLOOR WEAKNESS. Date of Evaluation: 11/02/24 Physical Therapist: Sandra Woods PT, Cert MDT Visit Plan Frequency: 1x/Week Duration: 2-4 Months Plan: PF THERAPY FOR STRENGTHENING, LENGTHENING/RELAXATION AND ENDURANCE TRAINING. DIASTASIS RECTI EDUCATION AND EX INSTRUCTION. HEALTHY BACK AND BLADDER HABIT EDUCATION. TRAINING IN COORDINATION OF PELVIC FLOOR MUSCULATURE WITH HIP AND CORE (TRANSVERSE ABDOMINUS) MUSCULATURE. CORE STRENGTHENING TAKING DR INTO CONSIDERATION. SRINI LE ROM, STRETCHING AND STRENGTHENING. TRAINING IN ABDOMINAL CAVITY PRESSURE MGMT WITH ADL'S. POSTURE TRAINING. Subjective Subjective: Work/Leisure: STAY AT HOME MOM. 3 CHILDREN AGES 7, 5 AND 2. Present symptoms: URINARY LEAKAGE WETTING UNDERWEAR AND OUTERWEAR. CURRENTLY USING NO PROTECTION OR MINI PAD. OCCURS IN SITTING, DRIVING, STANDING AND ON STAIRS. UI WITH LAUGHING, COUGHING, SNEEZING. Present since: 7 YEARS AGO BUT WORSE 10/15/24 AFTER D & E (LOSS AT 16 WEEKS A COUPLE WEEKS AGO) Pain Scale: N/A Is it getting better, worse or staying the same: STAYING ABOUT THE SAME Commenced as a result of: AND 10/15/24 PROCEEDURE. Previous history/Previous treatment: NOT CURRENTLY BUT PLANS TO ATTEMPT TO GET IN 1 TO 2 MONTHS. HAS BEEN 6 TIMES. HISTORY OF LATE LOSS OF PREGNANCIES. 3 LIVE BIRTHS (AGES 7, 5 AND 2 - ALL VAGINAL DELIVERIES). NO PRIOR PELVIC FLOOR THERAPY OR UI TREATMENT. How long can you delay the need to urinate: PATIENT REPORTS SHE ISN'T HAVING URGE SO SHE IS VOIDING ABOUT EVERY 2-3 HOURS. Prolapse (Falling out feeling): PRESSURE OCCASIONALLY, WITH MENSES AND AT END OF THE DAY Frequency of Urination: ONE TIME AT NIGHT AND 5-8 TIMES DURING THE DAY. Fluid intake: 3-5 8oz glasses. Ability to stop urine flow: Can partially deflect the stream. Ability to initiate urine stream: yes. Difficulty less than once a week. Dyspareunia: NO Gait: NORMAL Bowel Incontinence: NO Accidents: NO Unexplained weight loss: NO Imaging: NO PMH/Recent major surgery: UNSPECIFIED INFLAMMATORY CONDITION PER PATIENT REPORT NOT TREATED WITH MEDICATION. Objective Objective: Sitting/Standing Posture: SLOUCHED IN SITTING. ANTERIOR PELVIC TILT IN STANDING. NO RELEVANT LATERAL LUMBAR SHIFT. Other Observations: INDEP GAIT AND TRANSFERS. Sensory deficit: ALTERED SENSATION SRINI LOWER LEGS AND FEET R> LEFT FROM HX OF COMPARTMENT SYNDROME IN HIGH SCHOOL. ROM deficit: TIGHT SRINI LE HIP EXTERNAL ROTATORS, HIP ADDUCTORS, HS'S AND GASTROC-SOLEUS COMPLEX'S. Motor deficit: SRINI LE'S 5/5 EXCEPT HIPS 4/5. PATIENT COMMUNICATES A GOOD UNDERSTANDING OF HOW TO CONTRACT PELVIC FLOOR WITH CUEING IN HOOKLYING, REPORTS BEING ABLE TO DEFLECT URINE STREAM AND DOES NOT DISPLAY ABDOMINAL AND GLUT COMPENSATIONS DURING INSTRUCTION. INTERNAL MANUAL VAGINAL TESTING OF PELVIC FLOOR DEFERRED DUE TO RECENT PROCEEDURE. Dural Signs: NEGATIVE SRINI LE'S. Lumbar mvmt loss: flex - MIN ext - MIN R SG - NIL L SG - NIL PATIENT DENIES PAIN WITH LUMBAR ROM TESTING. Core strength: POOR. 1 TO 2 FINGER WIDTH DIASTASIS RECTI ABOVE AND BELOW NAVEL . FUNCTIONAL SCREEN: Incontinence Impact Questionnaire Score: 5 Urogenital Distress Inventory Score: 12 TREATMENT: INTRO TO DIAGNOSIS EDUATION, HEP INSTRUCTION FOR DIAPHRAGMATIC BREATHING X AT LEAST 5 MIN ONCE A DAY AND QUICK FLICK KEGELS X 8 IN HOOKLYING 3 TIMES A DAY. INSTRUCTED TO AVOID KEGELS DURING MICTURITION. PATIENT IS PLEASANT AND COOPERATIVE TO WORK WITH AND DEMONSTRATED/COMMUNICATED A GOOD UNDERSTANDING OF ALL INSTRUCTIONS AFTER GIVEN. PAD PROTECTION EDUCATION AND RECOMMENDATIONS FOR COMFORT AND HYGIENE. Goals Goal 1:: DECREASE URINARY LEAKAGE EPISODES TO ONE OR LESS PER DAY Goal 2:: PATIENT WILL DEMONSTRATE/COMMUNICATE 10 CONSISTENT AND CONSECUTIVE 10 SECOND PELVIC FLOOR MUSCLE CONTRACTIONS TO DEMONSTRATE IMPROVED PELVIC FLOOR ENDURANCE. Goal 3:: INCREASE ABDOMINAL/TRUNK AND LE STRENGTH FOR OPTIMAL ORGAN SUPPORT Goal 4:: PATIENT WILL BE ABLE TO MAINTAIN PROPER POSTRUE CONTROL THROUGHOUT PT SESSION TO DEMONSTRATE IMPROVED STRENGTH. Goal 5:: PATIENT WILL APPROPRIATELY MANAGE CHANGES IN INTRAABDOMINAL PRESSURE WITH APPROPRIATE PELVIC FLOOR MUSCLE ACTIVATION AND BREATHING TECHNIQUES. Goal 6:: PATIENT WILL BE INDEP WITH A HEP/HOME INSTRUCTIONS FOR CONTINUED IMPROVEMENT ONCE FORMAL PHYSICAL THERAPY CONCLUDES. Rehabilitation Potential Physical Therapy Diagnosis: POSTURAL, CORE AND LE STIFFNESS AND WEAKNESS, DIASTAIS RECTI AND PROBABLE PELVIC FLOOR WEAKNESS. Rehabilitation Potential: Good Anticipated Interventions Patient/Client Instruction: Educate patient on: Condition, Plan of Care and Risk Factors For the Purpose of:: To improve self management Therapeutic Exercise to Include: Strength training, Endurance training, Coordination, Body mechanics, Postural training, Flexibilty training, Neuromotor development and Relaxation training For the Purpose of:: To improve muscle performance and motor function, To improve ability of physical actions for home/community/work/leisure and To increase flexibility/ROM Text: Thank you for the opportunity to evaluate your patient. For Medicare and Medicare HMO plans, please review the plan of care and approve it. It will need to be FAXED BACK to us at [phone] for Medicare purposes. For Medicare only, by signing this I certify the plan of care. Please let me know if there are questions or concerns regarding this plan of care. Physician Signature: Date:
--- NOTE | 2025-02-01 12:47 | HP.PTREVAL ---
Re-Evaluation Intro: Kimi Alves, FARHAT-C, It has been my pleasure to treat MADALYN KAUFFMAN over the last 12 visits for URINARY INCONTINENCE, PELVIC FLOOR WEAKNESS. Please see the progress note below for an update on the physical therapy plan of care! Subjective Subjective: PATIENT REPORTS THE SECOND POOL SESSION WENT GOOD TOO AND SHE WOULD LIKE TO CONTINUE TO BUILD ON HER THE IMPROVEMENT WHAT SHE IS LEARNING. SHE STATES SHE IS STILL OCCASIONALLY HAVING URGENCY WHEN SHE WAITS TOO LONG TO VOID BUT ALWAYS MAKES IT TO THE TOLIET IN TIME NOW WITHOUT LEAKING BY USING THE STRATEGIES SHE HAS LEARNED. ONLY TIME SHE HAS LEAKING NOW IS WHEN HER SON RUNS INTO HER WHILE RUNNING WHICH HAS BEEN ABOUT ONCE A WEEK. THOUGHT SHE MAYBE LEAKED WHEN SNEEZED THE OTHER DAY BUT ACTUALLY DIDN'T. PATIENT STATES SHE DOESN'T FEEL LIKE SHE EVER FEELS LIKE SHE NEEDS TO WEAR A PANY LINER ANY MORE. Objective Objective/Function: ASSESSMENT OF CURRENT SX'S AND HEP CHECK. PROGRESSION OF HEP WITH: PELVIC FLOOR ELEVATOR EX X 5 WRITTEN HEP INST PROVIDED. IMPROVING. PATIENT HAS PROGRESSED TO WORKING ON 10 REPS OF 10 SEC EA WITH TRADITIONAL KEGELS. PATIENT IS A GOOD CANDIDATE TO CONTINUE AQUATIC THERAPY. UPCOMING MEETING WITH MEDICAL PROVIDER TO DISCUSS TRYING TO HAVE ANOTHER BABY. Plan Plan Plan: CONT PT WITH AQUATIC THERAPY X 4 TO 6 MORE VISITS FOR BACK PAIN RELIEF AND CORE STRENGTHENING ALONG WITH INST IN HIP FLEXOR AND QUAD STRETCHING TO DECREASE STRESS ON LUMBAR SPINE TAKING DIASTASIS RECTI INTO CONSIDERATION. PATIENT AGREEABLE. Goals Goals Goal 1:: DECREASE URINARY LEAKAGE EPISODES TO ONE OR LESS PER DAY Goal Time Frame: 6-8 Weeks Goal Progress: Goal Met Goal 2:: PATIENT WILL DEMONSTRATE/COMMUNICATE 10 CONSISTENT AND CONSECUTIVE 10 SECOND PELVIC FLOOR MUSCLE CONTRACTIONS TO DEMONSTRATE IMPROVED PELVIC FLOOR ENDURANCE. Goal Time Frame: 8-12 Weeks Goal Progress: Progressing Goal 3:: INCREASE ABDOMINAL/TRUNK AND LE STRENGTH FOR OPTIMAL ORGAN SUPPORT Goal Time Frame: 8-12 Weeks Goal Progress: Progressing Goal 4:: PATIENT WILL BE ABLE TO MAINTAIN PROPER POSTRUE CONTROL THROUGHOUT PT SESSION TO DEMONSTRATE IMPROVED STRENGTH. Goal Time Frame: 6-8 Weeks Goal Progress: Progressing Goal 5:: PATIENT WILL APPROPRIATELY MANAGE CHANGES IN INTRAABDOMINAL PRESSURE WITH APPROPRIATE PELVIC FLOOR MUSCLE ACTIVATION AND BREATHING TECHNIQUES. Goal Time Frame: 4-6 Weeks Goal Progress: Progressing Goal 6:: PATIENT WILL BE INDEP WITH A HEP/HOME INSTRUCTIONS FOR CONTINUED IMPROVEMENT ONCE FORMAL PHYSICAL THERAPY CONCLUDES. Goal Time Frame: 8-12 Weeks Goal Progress: Progressing Anticipated Interventions Anticipated Interventions Patient/Client Instruction: Educate patient on: Condition, Plan of Care and Risk Factors For the Purpose of:: To improve self management Therapeutic Exercise to Include: Strength training, Endurance training, Coordination, Body mechanics, Postural training, Flexibilty training, Neuromotor development and Relaxation training For the Purpose of:: To improve muscle performance and motor function, To improve ability of physical actions for home/community/work/leisure and To increase flexibility/ROM Re-Evaluation Ending Re-evaluation ending: Please do not hesitate to contact me at [phone] by phone or if you have questions or concerns regarding this new plan of care! Sincerely, Sandra Woods PT, Cert MDT
--- NOTE | 2025-03-10 15:53 | HP.PTDCSUM ---
Discharge Summary D/C summary: It has been my pleasure to treat MADALYN KAUFFMAN referred by Kimi Alves, FARHAT-C, with the diagnosis of URINARY INCONTINENCE, PELVIC FLOOR WEAKNESS for a total of 17 visit(s). Discharge Date: 03/10/25 Please see the following information for a summary of their discharge status. Subjective Subjective: F/U WITH OBGYN AND PCP LAST WEEK. 4 WKS AND PURSUING GLUTEN SENSATIVITY. I HAVE MADE A LOT OF PROGRESS BUT I AM NOT COMPLETELY HEALED STILL HAVING INTERMITTENT URINARY LEAKING WITH RUNNING. STATES UI IS ONLY OCCURRING WITH RUNNING NOW AND NOT ALWAYS WITH RUNNING. PATIENT REPORTS HER BACK HAS BEEN DONG REALLY GOOD AND FOR THE FIRST TIME IN ABOUT 7 YEARS SHE FEELS LIKE SHE HAS SOME STRENGTH IN HER CORE. ALSO REPORTS SHE LIKES THE WATER EX AND HOW HER BODY/JOINTS FEEL WHEN SHE DOES IT. Pain LOW BACK PAIN: Pain Intensity (Out of 10): 1 Overall Improvement % Improvement: 90 Objective Objective/Function: PATIENT WAS SEEN TODAY FOR RE-ASSESSMENT OF PROGRESS TOWARD THE SET PT GOALS AND THE NEED FOR FURTHER PHYSICAL THERAPY VS READINESS FOR DISCHARGE. THIS PATIENT HAS DONE REALLY WELL WITH PT. UPON EXAM TODAY ALL PT GOALS HAVE BEEN MET AND PATIENT IS APPROPROPRIATE FOR AND AGREEABLE TO DISCHARGE. 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 PATIENT IS AGREEABLE AND HAS NO FURHTER QUESTIONS OR CONCERNS AT THIS POINT. FUNCTIONAL SCREEN: Incontinence Impact Questionnaire Score: 2 (5 AT EVAL) Urogenital Distress Inventory Score: 1 (12 AT EVAL) Goals Goal 1:: DECREASE URINARY LEAKAGE EPISODES TO ONE OR LESS PER DAY Goal Progress: Goal Met Goal 2:: PATIENT WILL DEMONSTRATE/COMMUNICATE 10 CONSISTENT AND CONSECUTIVE 10 SECOND PELVIC FLOOR MUSCLE CONTRACTIONS TO DEMONSTRATE IMPROVED PELVIC FLOOR ENDURANCE. Goal Progress: Goal Met Goal 3:: INCREASE ABDOMINAL/TRUNK AND LE STRENGTH FOR OPTIMAL ORGAN SUPPORT Goal Progress: Goal Met Goal 4:: PATIENT WILL BE ABLE TO MAINTAIN PROPER POSTRUE CONTROL THROUGHOUT PT SESSION TO DEMONSTRATE IMPROVED STRENGTH. Goal Progress: Goal Met Goal 5:: PATIENT WILL APPROPRIATELY MANAGE CHANGES IN INTRAABDOMINAL PRESSURE WITH APPROPRIATE PELVIC FLOOR MUSCLE ACTIVATION AND BREATHING TECHNIQUES. Goal Progress: Goal Met Goal 6:: PATIENT WILL BE INDEP WITH A HEP/HOME INSTRUCTIONS FOR CONTINUED IMPROVEMENT ONCE FORMAL PHYSICAL THERAPY CONCLUDES. Goal Progress: Goal Met Plan Plan: D/C. D/C Information d/c sentence: If there are questions or concerns regarding this patient's physical therapy, please feel free to call me at [phone]. Thank you for the referral of this patient. Sincerely, Sandra Woods, PT, Cert MDT Balance/Gait/Functional tests Improvement % Improvement: 90
== END 2025-03-10 19:00 | disposition home or self-care (01) ==
LOC: PT 15:00
PROVIDERS: PCP Internal Medicine; Visit Provider Nurse Practitioner Women's Health
DX: R32 Unspecified urinary incontinence (principal); N81.89 Other female genital prolapse
CPT/HCPCS: 97113; 97162; 97530